=== PATIENT | female | born 1985 | race Caucasian/White ===

== ENCOUNTER 2018-01-14 15:43 | Outpatient (CLI) | payer BC ==
[~2018-01-14] VITALS: Ht 175.3 cm; Wt 97.9 kg
[~2018-01-14 15:43] MED LIST: BIRTH CONTROL PILL; METOPROLOL SUCC25 MG PO; MOTRIN IB200 MG PO; NORCO 5/3251 TABLET PO; ZOMIG5 MG PO
[2018-01-14 15:58] VITALS: BP 153/81
[2018-01-14] MEDS ORDERED: PRENATAL TABLE1 EAC3 PO (16:18)
[2018-01-14 16:19] VITALS: BP 128/75
[2018-01-14] MEDS ORDERED: FOLIC ACID0.8 MG PO (16:19)
[2018-01-14] MEDS ORDERED: ZANTAC150 MG PO (16:20)
[2018-01-14 19:07] VITALS: BP 125/68
== END 2018-01-14 20:20 | disposition home or self-care (01) ==
LOC: LDRP-OP 15:43 → 2WEST 15:44
DX: O47.1 False labor at or after 37 completed weeks of gestation (principal); O99.820 Streptococcus B carrier state complicating pregnancy; Z3A.41 41 weeks gestation of pregnancy
CPT/HCPCS: 59025; C1755; G0378

== ENCOUNTER 2018-01-17 02:33 | Inpatient (IN) | payer BC ==
[2018-01-17] VITALS (25 sets, daily range): BP systolic 105–142; BP diastolic 52–80
[~2018-01-17] VITALS: Ht 175.3 cm; Wt 98.0 kg
[~2018-01-17 02:33] MED LIST changes: +FOLIC ACID0.8 MG PO; +PRENATAL TABLE1 EAC3 PO; +ZANTAC150 MG PO
[2018-01-17 08:21] LABS: BASOPHIL (%) 0.4 % (0-1); BASOPHIL COUNT 0.1 K/uL (0-0.1); EOSINOPHIL (%) 0.6 % (0-5); EOSINOPHIL COUNT 0.1 K/uL (0-0.3); HEMATOCRIT 36.2 % (36.0-46.0); HEMOGLOBIN 12.1 G/DL (11.9-15.5); IMMATURE GRANULOCYTE (%) 1.7 % (0.0-0.7); LYMPHOCYTE (%) 9.8 % (15-42); LYMPHOCYTE COUNT 1.4 K/uL (1.0-2.8); MCHC 33.4 G/DL (30.0-36.0); MCV 95.8 FL (83-99); MONOCYTE (%) 7.3 % (3-12); MONOCYTE COUNT 1.1 K/uL (0-0.8); NEUTROPHIL (%) 80.2 % (45-76); NEUTROPHIL COUNT 11.5 K/uL (1.8-6.4); PLATELET COUNT 192 K/uL (156-360); RBC DIS.WIDTH-CV 13.1 % (11.8-14.6); RBC DIS.WIDTH-SD 46.5 % (39-53); RED BLOOD COUNT 3.78 M/uL (3.80-5.20); WHITE BLOOD COUNT 14.4 K/uL (4.1-10.2)
[2018-01-17 10:29] LABS: AMPHETAMINE NEGATIVE (500 ng/mL); BARBITURATES NEGATIVE (200 ng/mL); BENZODIAZEPINES NEGATIVE (150 ng/mL); BUPRENORPHINE NEGATIVE (10 ng/mL); COCAINE NEGATIVE (150 ng/mL); METHADONE NEGATIVE (200 ng/mL); METHAMPHETAMINE NEGATIVE (500 ng/mL); OPIATES (MORPHINE) NEGATIVE (100 ng/mL); OXYCODONE NEGATIVE (100 ng/mL); PHENCYCLIDINE NEGATIVE (25 ng/mL); PROPOXYPHENE NEGATIVE (300 ng/mL); THC CANNABINOIDS NEGATIVE (50 ng/mL); TRICYCLIC ANTIDEPRESSANTS NEGATIVE (300 ng/mL)
[2018-01-17] MEDS ORDERED: BISAC-EVAC10 MG PR (21:07)
[2018-01-17] MEDS ORDERED: IBUPROFEN800 MG PO (21:07)
[2018-01-18 06:14] LABS: BASOPHIL (%) 0.3 % (0-1); BASOPHIL COUNT 0.1 K/uL (0-0.1); EOSINOPHIL (%) 0.5 % (0-5); EOSINOPHIL COUNT 0.1 K/uL (0-0.3); HEMATOCRIT 30.5 % (36.0-46.0); HEMOGLOBIN 10.3 G/DL (11.9-15.5); IMMATURE GRANULOCYTE (%) 0.7 % (0.0-0.7); LYMPHOCYTE (%) 6.8 % (15-42); LYMPHOCYTE COUNT 1.3 K/uL (1.0-2.8); MCH 32.5 PG (29.0-34.0); MCHC 33.8 G/DL (30.0-36.0); MCV 96.2 FL (83-99); MONOCYTE (%) 6.9 % (3-12); MONOCYTE COUNT 1.3 K/uL (0-0.8); NEUTROPHIL (%) 84.8 % (45-76); NEUTROPHIL COUNT 16.1 K/uL (1.8-6.4); PLATELET COUNT 201 K/uL (156-360); RBC DIS.WIDTH-CV 13.2 % (11.8-14.6); RBC DIS.WIDTH-SD 46.6 % (39-53); RED BLOOD COUNT 3.17 M/uL (3.80-5.20)
[2018-01-19 07:17] VITALS: BP 128/69
[2018-01-19] MEDS ORDERED: ENDOCET 5-3251 EACH PO (08:56)
== END 2018-01-19 14:36 | disposition home or self-care (01) | DRG 775 ==
LOC: LDRP-OP 02:33 → 2WEST 02:34 → LDRP-OP 02-06 20:47
PROVIDERS: Midwife; Obstetrics & Gynecology Gynecology
PROC: 10907ZC Drainage of Amniotic Fluid, Therapeutic from Products of Conception, Via Natural or Artificial Opening (ICD-10-PCS; principal; 2018-01-17)
PROC: 00HU33Z Insertion of Infusion Device into Spinal Canal, Percutaneous Approach (ICD-10-PCS; principal; 2018-01-17)
PROC: 3E0R3BZ Introduction of Anesthetic Agent into Spinal Canal, Percutaneous Approach (ICD-10-PCS; principal; 2018-01-17)
PROC: 10E0XZZ Delivery of Products of Conception, External Approach (ICD-10-PCS; principal; 2018-01-17)
PROC: 3E033VJ Introduction of Other Hormone into Peripheral Vein, Percutaneous Approach (ICD-10-PCS; principal; 2018-01-17)
PROC: 0DQR0ZZ Repair Anal Sphincter, Open Approach (ICD-10-PCS; principal; 2018-01-17)
DX: O48.0 Post-term pregnancy (principal); O99.824 Streptococcus B carrier state complicating childbirth; O70.20 Third degree perineal laceration during delivery, unspecified; G43.909 Migraine, unspecified, not intractable, without status migrainosus; O69.81X0 Labor and delivery complicated by cord around neck, without compression, not applicable or unspecified; R00.1 Bradycardia, unspecified; O63.1 Prolonged second stage (of labor); Z3A.41 41 weeks gestation of pregnancy; Z37.0 Single live birth
CPT/HCPCS: 59025; 85025; 86850; 86900; 86901; C1755; G0378; J2210; J2540; J3010; J7120

== ENCOUNTER → 2018-01-24 | Outpatient (CLI) | payer BC ==
[~2018-01-24] MED LIST changes: +BISAC-EVAC10 MG PR; +ENDOCET 5-3251 EACH PO; +IBUPROFEN800 MG PO
== END | disposition home or self-care (01) ==
LOC: LAC 14:08
DX: Z39.1 Encounter for care and examination of lactating mother (principal); O92.79 Other disorders of lactation
CPT/HCPCS: G0463